=== PATIENT | male | born 1970 | race Caucasian/White ===

== ENCOUNTER 2017-01-27 17:02 | Emergency (ER) | payer OTHER ==
[~2017-01-27] VITALS: Ht 180.3 cm; Wt 112.0 kg
[2017-01-27 17:06] VITALS: BP 163/108
== END 2017-01-27 18:29 | disposition home or self-care (01) ==
LOC: ED 17:02
DX: M54.16 Radiculopathy, lumbar region (principal); I10 Essential (primary) hypertension
CPT/HCPCS: J1100; J1885

== ENCOUNTER 2017-02-27 10:36 | Inpatient (IN) | payer OTHER ==
[~2017-02-27] VITALS: Ht 180.3 cm; Wt 112.9 kg
[2017-02-27 12:00] LABS: PLATELET COUNT 231 x10^3mcL (130-400)
[2017-02-27 12:09] LABS: CALCIUM 8.6 mg/dL (8.5-10.1); CARBON DIOXIDE 22.8 mmol/L (21-32); CHLORIDE SERUM 95 mmol/L (98-107); GFR1 > 60 mL/min; GLUCOSE SERUM 143 mg/dL (74-106); POTASSIUM SERUM 3.2 mmol/L (3.5-5.1); SODIUM SERUM 129 mmol/L (136-145)
[2017-02-27 12:14] LABS: ALKALINE PHOSPHATASE 127 U/L (46-116); ALT/SGPT 44 U/L (16-63); AST/SGOT 38 U/L (15-37); BILIRUBIN TOTAL 0.95 mg/dL (0.20-1.00); LIPASE 125 IU/L (73-393)
[2017-02-27 12:17] LABS: RED CELL DISTRIBUTION WIDTH 17.6 % (11.5-14.5)
[2017-02-27 12:34] LABS: ALBUMIN 3.1 g/dL (3.4-5.0)
[2017-02-27 12:46] LABS: BAND NEUTROPHIL 4 % (0-10); MONOCYTE 3 % (0-7); SEGMENTED NEUTROPHILS 90 % (37-75)
[2017-02-27 12:47] LABS: rbc morphology (normal/abnorm) NORMAL (NORMAL)
[2017-02-27 15:30] VITALS: BP 148/103
[2017-02-27 15:30] LABS: FREE T4 1.03 ng/dL (0.76-1.46); FREE THYROXINE INDEX 2.6 ug/dL (1.4-4.5); T4(THYROXINE) 7.5 ug/dL (4.7-13.3)
[2017-02-27 15:38] LABS: MAGNESIUM 0.9 mg/dL (1.8-2.4); PHOSPHOROUS 0.7 mg/dL (2.5-4.9)
[2017-02-27 15:51] VITALS: BP 148/103
[2017-02-27 16:08] LABS: UA SPECIFIC GRAVITY <=1.005 (1.005-1.035); microscopic required? YES; urine erythrocyte TRACE (NEGATIVE)
[2017-02-27 16:17] LABS: AMPHETAMINE QUAL UR NONE DETECTED (NEG <=1000)
[2017-02-27 16:22] LABS: T3 TOTAL 0.79 ng/mL
[2017-02-27 18:20] VITALS: BP 149/100
[2017-02-27 19:16] VITALS: Ht 180.3 cm; Wt 112.9 kg
[2017-02-27 21:35] VITALS: BP 148/76
[2017-02-28 05:37] VITALS: BP 129/69
[2017-02-28 06:10] LABS: BASOPHIL % 0.1 % (0-2); PLATELET COUNT 189 x10^3mcL (130-400)
[2017-02-28 06:46] LABS: RED CELL DISTRIBUTION WIDTH 17.9 % (11.5-14.5)
[2017-02-28 06:47] LABS: CALCIUM 7.6 mg/dL (8.5-10.1); CARBON DIOXIDE 25.6 mmol/L (21-32); CHLORIDE SERUM 100 mmol/L (98-107); CREATININE SERUM 0.8 mg/dL (0.7-1.3); GFR1 > 60 mL/min; GLUCOSE SERUM 116 mg/dL (74-106); PHOSPHOROUS 2.1 mg/dL (2.5-4.9); POTASSIUM SERUM 3.6 mmol/L (3.5-5.1); SODIUM SERUM 133 mmol/L (136-145)
[2017-02-28 09:47] VITALS: BP 125/88
[2017-02-28 13:29] VITALS: BP 108/70
[2017-02-28 13:59] VITALS: BP 125/85
[2017-02-28 17:21] VITALS: BP 114/73
[2017-02-28 22:02] VITALS: BP 107/69
[2017-03-01 06:09] LABS: PLATELET COUNT 199 x10^3mcL (130-400)
[2017-03-01 06:39] LABS: RED CELL DISTRIBUTION WIDTH 18.1 % (11.5-14.5)
[2017-03-01 07:46] LABS: CARBON DIOXIDE 28.1 mmol/L (21-32); CHLORIDE SERUM 99 mmol/L (98-107); GLUCOSE SERUM 90 mg/dL (74-106); SODIUM SERUM 133 mmol/L (136-145)
[2017-03-01 07:47] LABS: CALCIUM 7.9 mg/dL (8.5-10.1); CREATININE SERUM 0.8 mg/dL (0.7-1.3); GFR1 > 60 mL/min; MAGNESIUM 1.9 mg/dL (1.8-2.4); PHOSPHOROUS 2.9 mg/dL (2.5-4.9)
[2017-03-01 08:57] VITALS: BP 121/84
[2017-03-01 10:08] LABS: BAND NEUTROPHIL 19 % (0-10); BASOPHIL 0 % (0-2); MONOCYTE 3 % (0-7); SEGMENTED NEUTROPHILS 75 % (37-75)
[2017-03-01 10:09] LABS: PLATELET MORPHOLOGY GIANT PLATELET SEEN; rbc morphology (normal/abnorm) ABNORMAL (NORMAL); tear drop cell (dacryocyte) 1+
[2017-03-01 14:10] VITALS: BP 115/65
[2017-03-01 17:20] VITALS: BP 113/69
[2017-03-01 22:15] VITALS: BP 148/90
[2017-03-02 05:19] VITALS: BP 143/91
[2017-03-02 06:31] LABS: PLATELET COUNT 266 x10^3mcL (130-400)
[2017-03-02 06:55] LABS: CALCIUM 7.8 mg/dL (8.5-10.1); CARBON DIOXIDE 26.9 mmol/L (21-32); CHLORIDE SERUM 101 mmol/L (98-107); CREATININE SERUM 0.8 mg/dL (0.7-1.3); GFR1 > 60 mL/min; GLUCOSE SERUM 110 mg/dL (74-106); POTASSIUM SERUM 3.4 mmol/L (3.5-5.1); SODIUM SERUM 135 mmol/L (136-145)
[2017-03-02 10:03] VITALS: BP 147/97
[2017-03-02 10:37] LABS: BAND NEUTROPHIL 10 % (0-10); BASOPHIL 0 % (0-2); MONOCYTE 3 % (0-7); SEGMENTED NEUTROPHILS 84 % (37-75); rbc morphology (normal/abnorm) ABNORMAL (NORMAL)
[2017-03-02 10:38] LABS: tear drop cell (dacryocyte) 1+
[2017-03-02 18:15] VITALS: BP 126/81
[2017-03-02 21:00] VITALS: BP 141/88
[2017-03-03 07:08] VITALS: BP 163/98
[2017-03-03 09:45] VITALS: BP 140/92
[2017-03-03 10:58] LABS: BASOPHIL % 0.1 % (0-2); PLATELET COUNT 355 x10^3mcL (130-400)
[2017-03-03 11:08] LABS: CALCIUM 8.4 mg/dL (8.5-10.1); CARBON DIOXIDE 27.1 mmol/L (21-32); CHLORIDE SERUM 105 mmol/L (98-107); CREATININE SERUM 0.9 mg/dL (0.7-1.3); GFR1 > 60 mL/min; GLUCOSE SERUM 123 mg/dL (74-106); SODIUM SERUM 140 mmol/L (136-145)
[2017-03-03 11:11] LABS: RED CELL DISTRIBUTION WIDTH 18.3 % (11.5-14.5)
[2017-03-03 17:57] VITALS: BP 138/84
[2017-03-03 21:44] VITALS: BP 138/86
[2017-03-04 05:16] VITALS: BP 138/92
[2017-03-04 06:14] LABS: PLATELET COUNT 387 x10^3mcL (130-400)
[2017-03-04 06:18] LABS: CALCIUM 8.2 mg/dL (8.5-10.1); CARBON DIOXIDE 26.6 mmol/L (21-32); CHLORIDE SERUM 102 mmol/L (98-107); CREATININE SERUM 0.8 mg/dL (0.7-1.3); GFR1 > 60 mL/min; GLUCOSE SERUM 115 mg/dL (74-106); POTASSIUM SERUM 3.7 mmol/L (3.5-5.1); SODIUM SERUM 138 mmol/L (136-145)
[2017-03-04 06:39] LABS: BASOPHIL % 2.6 % (0-2); RED CELL DISTRIBUTION WIDTH 18.3 % (11.5-14.5)
[2017-03-04 10:17] VITALS: BP 142/94
[2017-03-04 13:24] VITALS: BP 153/95
[2017-03-04 16:53] VITALS: BP 141/92
[2017-03-04 21:02] VITALS: BP 133/93
[2017-03-05 05:43] VITALS: BP 147/98
[2017-03-05 06:20] LABS: CALCIUM 8.9 mg/dL (8.5-10.1); CARBON DIOXIDE 26.4 mmol/L (21-32); CHLORIDE SERUM 103 mmol/L (98-107); CREATININE SERUM 0.9 mg/dL (0.7-1.3); GFR1 > 60 mL/min; GLUCOSE SERUM 98 mg/dL (74-106); POTASSIUM SERUM 4.5 mmol/L (3.5-5.1); SODIUM SERUM 137 mmol/L (136-145)
[2017-03-05 06:54] LABS: PLATELET COUNT 471 x10^3mcL (130-400); RED CELL DISTRIBUTION WIDTH 18.1 % (11.5-14.5)
[2017-03-05 09:05] VITALS: BP 142/94
[2017-03-05] MEDS ORDERED: CLINDAMYCIN HC300 MG PO ×2 (10:13→16:28)
[2017-03-05] MEDS ORDERED: LAC PO ×2 (10:14→16:28)
[2017-03-05] MEDS ORDERED: NOR10T PO ×2 (10:20→16:28)
[2017-03-05] MEDS ORDERED: COL100 PO ×2 (10:21→16:28)
[2017-03-05 10:55] LABS: MONOCYTE 12 % (0-7); SEGMENTED NEUTROPHILS 63 % (37-75)
[2017-03-05 10:56] LABS: BAND NEUTROPHIL 3 % (0-10); BASOPHIL 0 % (0-2); METAMYELOCTE 1 % (0-2); MYELOCYTE 1 % (0-2)
[2017-03-05 10:57] LABS: rbc morphology (normal/abnorm) ABNORMAL (NORMAL); tear drop cell (dacryocyte) 1+
[2017-03-05 15:10] VITALS: BP 142/94
[2017-03-05] MEDS ORDERED: LEXAPRO10 MG PO ×2 (16:08→16:28)
[2017-03-05 18:08] VITALS: BP 135/92
== END 2017-03-05 18:31 | disposition home or self-care (01) | DRG 710 ==
LOC: ED 10:36 → DU 13:14 → MU 13:14 → DU 15:24 → MU 03-02 06:55
PROVIDERS: Emergency Medicine; Family Medicine; Podiatrist; ADMIT Family Medicine
PROC: 0J9Q0ZZ Drainage of Right Foot Subcutaneous Tissue and Fascia, Open Approach (ICD-10-PCS; principal; 2017-02-28 10:30)
DX: A41.9 Sepsis, unspecified organism (principal); E43 Unspecified severe protein-calorie malnutrition; E87.8 Other disorders of electrolyte and fluid balance, not elsewhere classified; E87.1 Hypo-osmolality and hyponatremia; L03.115 Cellulitis of right lower limb; E83.39 Other disorders of phosphorus metabolism; E44.0 Moderate protein-calorie malnutrition; I16.0 Hypertensive urgency; F15.10 Other stimulant abuse, uncomplicated; E87.6 Hypokalemia; R31.9 Hematuria, unspecified; Z91.19 Patient's noncompliance with other medical treatment and regimen; E66.9 Obesity, unspecified; Z68.34 Body mass index [BMI] 34.0-34.9, adult; F17.210 Nicotine dependence, cigarettes, uncomplicated; Z72.89 Other problems related to lifestyle
CPT/HCPCS: 82962; 83880; 84439; 90715; 94150; 97110-GP; 97116-GP; 97530-GP; C9113; J1644; J1885; J1956; J2001; J2250; J2270; J2405; J2704; J3010; J3475; J3490; J7030; J7120; Q0092

== ENCOUNTER 2017-06-30 01:03 | Emergency (ER) | payer OTHER ==
[~2017-06-30 01:03] MED LIST: CLINDAMYCIN HC300 MG PO; COL100 PO; LAC PO; LEXAPRO10 MG PO; NOR10T PO
[2017-06-30 03:32] VITALS: BP 183/119
== END 2017-06-30 03:32 | disposition home or self-care (01) ==
LOC: ED 01:03
DX: I10 Essential (primary) hypertension (principal)

== ENCOUNTER 2017-10-04 06:59 | Emergency (ER) | payer OTHER ==
[~2017-10-04] VITALS: Ht 180.3 cm; Wt 106.8 kg
[2017-10-04 07:06] VITALS: Ht 180.3 cm; Wt 106.8 kg
[2017-10-04 08:00] LABS: BASOPHIL % 0.3 % (0-2); PLATELET COUNT 263 x10^3mcL (130-400)
[2017-10-04 08:04] LABS: RED CELL DISTRIBUTION WIDTH 18.5 % (11.5-14.5)
[2017-10-04 09:12] LABS: microscopic required? NO
[2017-10-04 09:32] LABS: UA SPECIFIC GRAVITY 1.015 (1.005-1.035); urine erythrocyte NEGATIVE (NEGATIVE)
[2017-10-04 09:41] LABS: AMPHETAMINE QUAL UR POSITIVE (NEG <=1000)
[2017-10-04 09:50] LABS: CALCIUM 8.9 mg/dL (8.5-10.1); CARBON DIOXIDE 27.5 mmol/L (21-32); CHLORIDE SERUM 100 mmol/L (98-107); CREATININE SERUM 0.8 mg/dL (0.7-1.3); GFR1 > 60 mL/min; GLUCOSE SERUM 104 mg/dL (74-106); SODIUM SERUM 138 mmol/L (136-145)
[2017-10-04 09:55] LABS: ALBUMIN 3.9 g/dL (3.4-5.0); ALKALINE PHOSPHATASE 153 U/L (46-116); ALT/SGPT 41 U/L (16-63); AST/SGOT 21 U/L (15-37); BILIRUBIN TOTAL 0.7 mg/dL (0.20-1.00); CHOLESTEROL 151 mg/dL (<200); HDL CHOLESTEROL 52 mg/dL (40-60); MAGNESIUM 2.2 mg/dL (1.8-2.4); TOTAL PROTEIN, SERUM 7.5 g/dL (6.4-8.2)
[2017-10-04 12:06] VITALS: BP 136/85
== END 2017-10-04 12:06 | disposition home or self-care (01) ==
LOC: ED 06:59
PROVIDERS: Emergency Medicine
DX: I10 Essential (primary) hypertension (principal); F17.210 Nicotine dependence, cigarettes, uncomplicated; F10.20 Alcohol dependence, uncomplicated; F15.20 Other stimulant dependence, uncomplicated; Z91.14 Patient's other noncompliance with medication regimen; Z71.6 Tobacco abuse counseling
CPT/HCPCS: 82962; 83880; 99406; J3490; Q0092

== ENCOUNTER 2017-11-13 19:37 | Emergency (ER) | payer OTHER ==
[~2017-11-13] VITALS: Ht 180.3 cm; Wt 111.1 kg
[2017-11-13 19:55] VITALS: Ht 180.3 cm; Wt 111.1 kg
[2017-11-13 20:57] VITALS: BP 144/134
== END 2017-11-13 20:57 | disposition left against medical advice (07) ==
LOC: ED 19:37
DX: Z53.21 Procedure and treatment not carried out due to patient leaving prior to being seen by health care provider (principal)

== ENCOUNTER 2019-03-23 12:41 | Emergency (ER) | payer MEDICAID ==
[~2019-03-23] VITALS: Ht 180.3 cm; Wt 112.9 kg
[2019-03-23 12:54] VITALS: Ht 180.3 cm; Wt 112.9 kg
[2019-03-23 14:26] VITALS: BP 157/93
== END 2019-03-23 14:26 | disposition home or self-care (01) ==
LOC: ED 12:41
DX: I10 Essential (primary) hypertension (principal)

== ENCOUNTER 2019-05-13 04:23 | Emergency (ER) | payer OTHER ==
[~2019-05-13] VITALS: Ht 180.3 cm; Wt 106.6 kg
[2019-05-13 04:55] VITALS: Ht 180.3 cm; Wt 106.6 kg
[2019-05-13 05:24] LABS: BASOPHIL % 0.3 % (0-2); PLATELET COUNT 238 x10^3mcL (130-400)
[2019-05-13 05:25] LABS: RED CELL DISTRIBUTION WIDTH 14.6 % (11.5-14.5)
[2019-05-13 05:34] LABS: CALCIUM 8.3 mg/dL (8.5-10.1); CARBON DIOXIDE 26.3 mmol/L (21-32); CHLORIDE SERUM 102 mmol/L (98-107); CREATININE SERUM 0.8 mg/dL (0.7-1.3); GFR1 > 60 mL/min; GLUCOSE SERUM 114 mg/dL (74-106); POTASSIUM SERUM 3.2 mmol/L (3.5-5.1); SODIUM SERUM 138 mmol/L (136-145)
[2019-05-13 05:39] LABS: ALBUMIN 3.5 g/dL (3.4-5.0); ALKALINE PHOSPHATASE 137 U/L (46-116); ALT/SGPT 92 U/L (16-63); AST/SGOT 42 U/L (15-37); BILIRUBIN TOTAL 0.62 mg/dL (0.20-1.00); TOTAL PROTEIN, SERUM 6.8 g/dL (6.4-8.2)
[2019-05-13 10:03] VITALS: BP 135/93
== END 2019-05-13 10:03 | disposition home or self-care (01) ==
LOC: ED 04:23
PROVIDERS: Emergency Medicine
DX: R07.89 Other chest pain (principal); I10 Essential (primary) hypertension; F41.9 Anxiety disorder, unspecified; F17.210 Nicotine dependence, cigarettes, uncomplicated
CPT/HCPCS: 36415; Q0092

== ENCOUNTER 2019-07-23 22:46 | Emergency (ER) | payer OTHER ==
[~2019-07-23] VITALS: Ht 180.3 cm; Wt 104.3 kg
[2019-07-23 22:51] VITALS: Ht 180.3 cm; Wt 104.3 kg
[2019-07-23 23:55] LABS: BASOPHIL % 0.9 % (0-2); PLATELET COUNT 263 x10^3mcL (130-400)
[2019-07-24 00:06] LABS: CARBON DIOXIDE 27.2 mmol/L (21-32); CHLORIDE SERUM 107 mmol/L (98-107); CREATININE SERUM 0.8 mg/dL (0.7-1.3); GFR1 > 60 mL/min; GLUCOSE SERUM 158 mg/dL (74-106); POTASSIUM SERUM 3.3 mmol/L (3.5-5.1); SODIUM SERUM 144 mmol/L (136-145)
[2019-07-24 00:07] LABS: ALBUMIN 3.4 g/dL (3.4-5.0); ALKALINE PHOSPHATASE 132 U/L (46-116); ALT/SGPT 70 U/L (16-63); AMYLASE 30 U/L (25-115); AST/SGOT 23 U/L (15-37); BILIRUBIN TOTAL 0.3 mg/dL (0.20-1.00); LIPASE 156 IU/L (73-393); TOTAL PROTEIN, SERUM 6.8 g/dL (6.4-8.2)
[2019-07-24 04:00] VITALS: BP 137/92
== END 2019-07-24 04:00 | disposition home or self-care (01) ==
LOC: ED 22:46
PROVIDERS: Emergency Medicine
DX: R11.10 Vomiting, unspecified (principal); R10.12 Left upper quadrant pain; S61.216A Laceration without foreign body of right little finger without damage to nail, initial encounter; X58.XXXA Exposure to other specified factors, initial encounter; Y93.89 Activity, other specified; Y92.89 Other specified places as the place of occurrence of the external cause; Y99.8 Other external cause status
CPT/HCPCS: 90715; C9113; J2405; J7030

== ENCOUNTER 2020-08-10 11:02 | Emergency (ER) | payer OTHER ==
[~2020-08-10] VITALS: Ht 180.3 cm; Wt 111.1 kg
[2020-08-10 11:29] VITALS: Ht 180.3 cm; Wt 111.1 kg
[2020-08-10 14:33] VITALS: BP 161/97
== END 2020-08-10 14:33 | disposition home or self-care (01) ==
LOC: ED 11:02
DX: L03.115 Cellulitis of right lower limb (principal); M25.462 Effusion, left knee; I10 Essential (primary) hypertension; F15.10 Other stimulant abuse, uncomplicated

== ENCOUNTER 2020-10-25 12:25 | Emergency (ER) | payer OTHER ==
[~2020-10-25] VITALS: Ht 177.8 cm; Wt 109.3 kg
[2020-10-25 12:32] VITALS: Ht 177.8 cm; Wt 109.3 kg
[2020-10-25 14:02] VITALS: BP 132/100
== END 2020-10-25 14:02 | disposition home or self-care (01) ==
LOC: ED 12:25
DX: G44.209 Tension-type headache, unspecified, not intractable (principal); I10 Essential (primary) hypertension; F15.10 Other stimulant abuse, uncomplicated